=== PATIENT | female | born 1955 | race Caucasian/White ===

== ENCOUNTER → 2018-02-25 10:25 | Outpatient (CLI) | payer BC, SELFPAY | PROVIDERS: PCP Physician Assistant; Visit Provider Physician Assistant | DX: Z00.00 Encounter for general adult medical examination without abnormal findings (principal); E03.9 Hypothyroidism, unspecified; Z53.8 Procedure and treatment not carried out for other reasons ==

== ENCOUNTER → 2018-02-27 09:05 | Outpatient (CLI) | payer BC, SELFPAY ==
[2018-02-27 10:07] LABS: Add Manual Diff / Slide Review NO; Basophils Percent Auto 0.8 % (0-2); Hematocrit 44.5 % (36-46); Lymphocytes Percent Auto 44.8 % (25-40); Mean Corpuscular HGB Conc 33.8 % (30-36); Mean Corpuscular Hemoglobin 28.8 PG (26-34); Mean Corpuscular Volume 85.4 fL (80-100); Monocytes Percent Auto 4.9 % (3-14); Neutrophils Absolute Auto 1800 /uL (3000-5900); Neutrophils Percent Auto 46.5 % (50-75); Platelet Count 189 X10^3/uL (150-400); Red Blood Cell Count 5.21 X10^6/uL (4.0-5.2); Red Cell Distribution Width 13.1 % (11.6-14.8); White Blood Cell Count 3.8 X10^3/uL (4.5-11.0)
[2018-02-27 10:25] LABS: Alanine Aminotransferase 38 IU/L (9-52); Albumin Globulin Ratio 1.7 (1.0-2.8); Alkaline Phosphatase 72 U/L (38-126); Aspartate Aminotransferase 26 IU/L (14-36); BUN Creatinine Ratio 21.3 (6-22); Bilirubin Total 0.7 mg/dL (0.2-1.3); Blood Urea Nitrogen 17 mg/dL (7-17); Calcium 9.3 mg/dL (8.4-10.2); Carbon Dioxide 28 mmol/L (22-32); Chloride 105 mmol/L (98-107); Cholesterol 155 mg/dL (140-199); Estimated Glomerular Filt Rate > 60.0 mL/min (>60); Globulin 2.3 g/dL (1.7-4.1); Glucose 91 mg/dL (80-110); HDL Cholesterol 69 mg/dL (40-60); HEMOLYSIS < 15 (0-50); LDL Cholesterol Calculated 71 mg/dL (<100); Potassium 4.4 mmol/L (3.4-5.1); Sodium 142 mmol/L (137-145); Total Protein 6.3 g/dL (6.3-8.2); Triglycerides 77 mg/dL (35-150); VLDL Cholesterol Calculated 15 mg/dL (2-30)
[2018-02-27 10:40] LABS: Free T3, Triiodothyronine Free 5.63 pg/mL (2.77-5.27); Free T4, Direct Thyroxine 1.17 ng/dL (0.78-2.19)
[2018-02-27 10:53] LABS: Thyroid Stimulating Hormone 0.11 uIU/mL (0.47-4.68)
[2018-02-27 11:13] LABS: Vitamin B12 623 pg/mL (239-931)
[2018-02-28 14:58] LABS: Thyroid Peroxidase Antibodies < 1 IU/mL (< 9)
[2018-03-02 17:02] LABS: Fecal Immunochemical Test DETECTED
[2018-03-03 01:10] LABS: 1 25 Dihydroxy Vitamin D 40 pg/mL (18-72)
== END ==
PROVIDERS: PCP Physician Assistant; Visit Provider Physician Assistant
DX: E03.9 Hypothyroidism, unspecified (principal)
CPT/HCPCS: 36415; 80053; 80061; 82274; 82607; 82652; 84439; 84443; 84481; 85025; 86376

== ENCOUNTER → 2023-10-15 08:41 | Outpatient (CLI) | payer MEDICARE, BC, SELFPAY ==
--- NOTE | 2023-10-15 08:47 | DI.RAD.S_ITS ---
PROCEDURE: XR LUMBAR SPINE MIN 4V INDICATIONS: BACK PAIN TECHNIQUE: 5 views of the lumbar spine were acquired, including bilateral oblique views. COMPARISON: None. FINDINGS: Bones: 5 nonrib-bearing vertebrae are present. Grade 1 anterolisthesis of L3 on L4 and L4 on L5. Moderate disc height loss at all levels. Facet arthrosis L3 through S1. Soft tissues: Overlying bowel gas pattern is normal. No suspicious soft tissue calcifications. Oblique images: No pars defects. IMPRESSION: No acute bony abnormality. Moderate, multilevel degenerative disc disease and lower lumbar facet arthrosis. Dictated by: Grayson Salas M.D. on 10/15/2023 at 11:17 Approved by: Grayson Salas M.D. on 10/15/2023 at 11:18
== END ==
PROVIDERS: PCP Nurse Practitioner; Referring Provider Physical Medicine & Rehabilitation; Visit Provider Physical Medicine & Rehabilitation
DX: M51.16 Intervertebral disc disorders with radiculopathy, lumbar region (principal); M47.26 Other spondylosis with radiculopathy, lumbar region; M43.16 Spondylolisthesis, lumbar region; M54.9 Dorsalgia, unspecified; R26.81 Unsteadiness on feet; Z98.84 Bariatric surgery status
CPT/HCPCS: 72110; 99214

== ENCOUNTER → 2024-02-03 11:06 | Outpatient (CLI) | payer MEDICARE, BC, SELFPAY ==
--- NOTE | 2024-02-03 11:08 | DI.RAD.S_ITS ---
PROCEDURE: XR CERVICAL SPINE 4V OR 5V INDICATIONS: Cervical spondylosis TECHNIQUE: 5 views of the cervical spine acquired. COMPARISON: None. FINDINGS: Bones: No fractures or dislocations to the C7-T1 level. There is trace retrolisthesis C5 on C6. Multilevel degenerative disc space narrowing most severe at C5-6. Multilevel anterior osteophytes are present as well as uncovertebral arthropathy. Bilateral foraminal narrowing from C3-4 through C6-7 is present most severe on the right. Oblique images demonstrate no bony foraminal stenoses. Soft tissues: No prevertebral soft tissue swelling. IMPRESSION: Multilevel disc and foraminal narrowing most severe on the right. Dictated by: Alba Bustos M.D. on 02/03/2024 at 15:46 Approved by: Alba Bustos M.D. on 02/03/2024 at 15:47
== END ==
PROVIDERS: PCP Nurse Practitioner; Referring Provider Physical Medicine & Rehabilitation; Visit Provider Physical Medicine & Rehabilitation
DX: M47.812 Spondylosis without myelopathy or radiculopathy, cervical region (principal); M48.02 Spinal stenosis, cervical region
CPT/HCPCS: 72050